=== PATIENT | female | born 1980 | race Caucasian/White ===

== ENCOUNTER → 2017-10-29 | Outpatient (CLI) | payer BC ==
[2016-12-29 00:09] VITALS: BMI 27.3
[~2017-10-29] MED LIST: AMOX500T10 PO; ETON1VAG7 VG; IBUP800T37 PO; LOR5/325 PO; PREN-127 PO
--- NOTE | 2017-10-29 14:31 | RADIOLOGY IMAGING REPORT ---
[place] [facility] [place] NAME: Indy Etienne : 1980 MR: [id number] V: [id number] EXAM DATE: ORDERING PHYSICIAN: HI FORBES TECHNOLOGIST: Location: [facility] [place] Patient: Indy Etienne : 1980 Visit/Account:[id number] Date of Sevice: 10/29/2017 Exam type: SOFT TISSUE NON-SPECIFIC History: Right groin mass Comparison: None. Findings: The right groin there is a heterogeneous hypoechoic space-occupying process measuring approximately 2 .3 x 2.2 cm and is approximately 2.6 mm deep to the skin. The appearance is nonspecific with differe ntial diagnosis including scar tissue or solid heterogeneous mass. If further imaging is desired CT or MR may be helpful IMPRESSION: 1. Heterogeneous hypoechoic space occupying process in the right groin measuring 2.3 x 2.2 cm. Diff erent diagnosis would include scar tissue versus a solid heterogeneous mass. If further imaging is d esired CT or MR may be helpful Report Dictated By: Latia Haas MD at 10/29/2017 2:25 PM Report E-Signed By: Latia Haas MD at 10/29/2017 2:27 PM WSN:[email or web address]
== END ==
LOC: US 04:48
PROVIDERS: ATTEND Obstetrics & Gynecology
DX: R19.09 Other intra-abdominal and pelvic swelling, mass and lump (principal)
CPT/HCPCS: 76999

== ENCOUNTER 2018-04-10 23:05 | Emergency (ER) | payer BC ==
[2016-12-29 00:09] VITALS: Wt 72.6 kg
[~2018-04-10 23:05] MED LIST changes: +FLU60VIA41 IM; +METH4TAB66 PO; +RIZA10TA3 PO
[2018-04-10] MEDS ORDERED: NS(*) 0.9% 1000 ML BAG 1,000 ML IV ONE (23:27)
[2018-04-10] MEDS ORDERED: MAGNESIUM SUL* 2 GM/50 ML IVPB 50 ML IVPB ONE (23:30)
[2018-04-10] MEDS ORDERED: KETOROLAC 30 MG/ML VIAL IVP ONE (23:30)
[2018-04-10] MEDS ORDERED: DEXAMETHASONE SOD PHOS 10MG/ML IVP ONE (23:30)
[2018-04-10] MEDS ORDERED: diphenhydrAMINE 50 MG/ML VIAL IVP ONE (23:30)
[2018-04-10] MEDS ORDERED: METOCLOPRAMIDE 10 MG/2 ML SDV IVP ONE (23:30)
--- NOTE | 2018-04-10 23:30 | ER Report ---
History and Physical Time Seen By MD: 23:30 Hx. of Stated Complaint: MIGRAINE STARTED ABOUT 6 THIS MORNING. TOOK TWO DOSES OF HER MIGRAINE MED. ONE DOSE OF ADVIL PM AT 10PM CECI SMITH/ANGEL CHIEF COMPLAINT: Migraine HISTORY OF PRESENT ILLNESS: Patient is a 37-year-old female here with complaints of typical migraine with photosensitivity. Symptoms started approximately 6:00 this morning, she took 2 doses of her rizatriptan and then Excedrin migraine followed by Advil PM this evening at 2200. Patient denies focal neurological deficits, weakness, visual disturbances aside from photosensitivity. REVIEW OF SYSTEMS: Constitutional: No fever, no chills. Eyes: No discharge. + Photosensitivity ENT: No sore throat. Cardiovascular: No chest pain, no palpitations. Respiratory: No cough, no shortness of breath. Gastrointestinal: No abdominal pain, no vomiting. Genitourinary: No hematuria. Musculoskeletal: No back pain. Skin: No rashes. Neurological: + Typical migraine headache distribution, no focal neurological deficits Allergies: Coded Allergies: No Known Drug Allergies (Unverified , 04/10/18) Home Meds Active Scripts Rizatriptan Benzoate (RIZATRIPTAN) 10 Mg Tab.rapdis, 10 MG PO ONCE, #10 TAB 1 Refill May repeat dose every 2 hours for two additional doses. Do not exceed 30mg in 24 hours. Prov:HI FORBES MD 02/09/18 Etonogestrel/Ethinyl Estradiol (NUVARING VAGINAL RING) 1 Each Vag.ring, 1 EACH VG Q4WK, #[address] one ring vaginall for 4 weeks and stack three in a row prior to taking one week off for menses, then repeat. Prov:HI FORBES MD 10/23/17 Reported Medications Vits W-Ca,Fe,Fa(<1MG) ( VITAMINS) 1 Each Tablet, 1 EACH PO DAILY, TAB 12/29/16 Discontinued Scripts Methylprednisolone (METHYLPREDNISOLONE) 4 Mg Tab.ds.pk, 4 MG PO DIRECTED, #1 PACK 0 Refills Prov:HI FORBES MD 03/27/18 Hx Smoking: No Smoking Status: Never Smoker Exposure to Second Hand Smoke?: No Hx Substance Use Disorder: No Hx Alcohol Use: No Constitutional Vital Sign - Last 24 Hours 04/10/18 04/10/18 04/10/18 04/10/18 23:05 23:18 23:20 23:30 Temp 97.5 Pulse ??? 65 ??? Resp 18 B/P (MAP) 137/96 137/96 (110) 89/40 (56) Pulse Ox 94 94 O2 Delivery Room Air 04/10/18 04/10/18 04/10/18 04/10/18 23:35 23:45 23:50 23:58 Pulse 64 68 B/P (MAP) 113/77 (89) Pulse Ox 93 O2 Flow Rate 2.0 04/11/18 04/11/18 04/11/18 04/11/18 00:05 00:20 00:30 00:35 Pulse 71 54 ??? B/P (MAP) 98/71 (80) Pulse Ox 94 93 93 04/11/18 04/11/18 04/11/18 04/11/18 00:40 00:55 01:00 01:10 Pulse 55 70 59 B/P (MAP) 98/66 (77) Pulse Ox 93 94 94 04/11/18 04/11/18 01:25 01:30 Pulse 74 B/P (MAP) 100/65 (77) Intake and Output 04/10/18 04/10/18 04/11/18 14:59 22:59 06:59 Intake Total 50 ml Balance 50 ml Physical Exam General Appearance: The patient is alert, has no immediate need for airway protection and no signs of toxicity. Uncomfortable appearing Eyes: Pupils equal and round no pallor or injection. ENT, Mouth: Mucous membranes are moist. Respiratory: There are no retractions, lungs are clear to auscultation. Cardiovascular: Regular rate and rhythm. Gastrointestinal: Abdomen is soft and non tender, no masses, bowel sounds normal. Neurological: No focal neurological deficits on examination Skin: Warm and dry, no rashes. Musculoskeletal: Neck is supple non tender. Extremities are nontender, nonswollen and have full range of motion. DIFFERENTIAL DIAGNOSIS: After history and physical exam differential diagnosis was considered for headache including but not limited to subarachnoid hemorrhage, migraine headache, tension headache and infectious causes such as meningitis, pharyngitis and sinusitis. Medical Decision Making ED Course/Re-evaluation ED Course Patient is a 37-year-old female here with complaints of her typical migraine distribution in spite of taking her rizatriptan, Excedrin Migraine, Aleve nighttime medication. Patient was given IV fluids, Benadryl, magnesium, Reglan, Decadron, Toradol with significant improvement of symptoms. Patient was hemodynamically stable at time of discharge. Return precautions provided. Decision to Disposition Date: Apr 11, 2018 Decision to Disposition Time: 01:27 Depart Departure Latest Vital Signs Vital Signs Date Time Temp Pulse Resp B/P (MAP) Pulse Ox O2 Delivery O2 Flow Rate FiO2 04/11/18 01:30 100/65 (77) 04/11/18 01:25 74 04/11/18 01:10 94 04/10/18 23:45 2.0 04/10/18 23:18 97.5 18 Room Air Impression: Primary Impression: Migraine Condition: Improved Disposition: HOME OR SELF-CARE Patient Instructions: Migraine Headache (ED) Additional Instructions: Please drink plenty of water. Please follow-up with your family doctor in the next week for follow-up evaluation. Please continue your medications as prescribed. Please return immediately if you develop worsening symptoms, weakness, fevers or chills, visual changes. KARRIE KELLY DO Apr 10, 2018 23:30
[2018-04-11 01:30] VITALS: BP 100/65
== END 2018-04-11 01:34 | disposition home or self-care (01) ==
LOC: ER 23:40
DX: G43.909 Migraine, unspecified, not intractable, without status migrainosus (principal)
CPT/HCPCS: 96365; 96375; 99284; J1100; J1200; J1885; J2765; J3475; J7030